=== PATIENT | male | born 1945 | race Caucasian/White ===

== ENCOUNTER 2020-08-13 15:24 | Inpatient (IN) ==
[2020-08-13 15:53] LABS: Bilirubin,Urine Negative (Negative); Blood, Urine Moderate mg/dL (Negative); Glucose,Urine (UA) Negative (Negative); Ketones,Urine Negative (Negative); Nitrite,Urine Negative (Negative); Protein,Urine Negative; RBC,Urine 12 /HPF (0-4); Squamous Epithelial Cell,Urine Occasional /HPF (0-10); Urine Appearance CLEAR (Clear); Urine Color Yellow (Yellow); Urine Specific Gravity 1.011 (1.001-1.035); Urine Urobilinogen < 2.0 EU/DL (0.2-1.0); WBC,Urine 3 /HPF (0-6)
[2020-08-13 15:55] LABS: Basophils # 0.1 10*3/uL (0.0-0.2); Basophils % 0.3 % (0.0-0.8); Eosinophils # 0.1 10*3/uL (0.0-0.87); Eosinophils % 0.4 % (0.00-10.9); Hematocrit 36.2 VOL% (42.0-52.0); Immature Granulocytes % 1.5 %; Immature Granulocytes Absolute 0.34 #; Lymphocytes # 2.6 10*3/uL (1.4-4.0); Lymphocytes % 11.4 % (21.2-54.2); Mean Corpuscular HGB Conc 33.1 GM/DL (32-36); Mean Corpuscular Volume 89.6 FL (87-102); Mean Platelet Volume 8.9 FL (9.6-12.0); Monocytes % 7.1 % (1.7-12.7); Neutrophils % 79.3 % (38.7-73.9); Platelet Count 398 T/CUMM (130-400); Red Blood Count 4.04 MC/CUMM (3.8-5.5); Red Cell Distribution Width 14.5 % (9.3-17.3); White Blood Count 22.5 T/CUMM (4-12)
[2020-08-13] MEDS ORDERED: DEXTROSE 5% LACTATED RINGERS 1,000 ML IV ONE (16:01)
[2020-08-13] MEDS ORDERED: DEXTROSE 50% 25 GM/50 ML SYRINGE IV ONE ×4 (16:04→18:45)
[2020-08-13] MEDS ORDERED: DEXTROSE 50% 25 GM/50 ML VIAL IV STA ×4 (16:06→18:54)
[2020-08-13 16:09] LABS: Barbiturates Screen,Urine Negative (Negative); Benzodiazepines Screen,Urine Negative (Negative); Cannabinoid Screen,Urine Negative (Negative); Opiate Screen,Urine Negative (Negative); Phencyclidine Screen,Urine Negative (Negative)
[2020-08-13] MEDS ORDERED: ACETAMINOPHEN 650 MG SUPP RECTAL STA (16:10)
[2020-08-13 16:13] LABS: Albumin 2.4 G/DL (3.4-5.0); Bilirubin,Total 0.6 MG/DL (0.2-1.0); Osmolality,Calculated 268.1 MOS/KG (273-304); Total Protein 8.1 G/DL (6.4-8.3)
[2020-08-13 16:35] LABS: Salicylate < 2.8 MG/DL (2.8-20)
[2020-08-13 16:36] LABS: ABG Base Excess 6.3 MMOL/L (-2.5-2.5); ABG HCO3 30.2 MMOL/L (20-26); ABG Oxygen Saturation 98.7 % (95-100); ABG PCO2 42.5 MM HG (35-48); ABG PH 7.467 (7.35-7.45); ABG TCO2 27.4 MMOL/L (23-27)
[2020-08-13 16:36] LABS: Risk Ratio 2.37; VLDL CHOLESTEROL 13.2 MG/DL
[2020-08-13 16:38] LABS: Acetaminophen < 2.0 UG/ML (10-30)
[2020-08-13] MEDS ORDERED: cefTRIAXone 1,000 MG in SODIUM CHLORIDE 0.9% 100 ML IV STA (17:20)
[2020-08-13] MEDS ORDERED: POTASSIUM CHLORIDE INJ 40 MEQ in DEXTROSE 5% LACTATED RINGERS 1,000 ML IV SCH (17:30)
[2020-08-13] MEDS ORDERED: GLUCAGON 1 MG VIAL IM PRN ×2 (18:29→18:30)
[2020-08-13] MEDS ORDERED: ZALEPLON 5 MG CAPSULE PO PRN (18:30)
[2020-08-13] MEDS ORDERED: diphenhydrAMINE CAP 25 MG CAPSULE PO PRN (18:30)
[2020-08-13] MEDS ORDERED: DOCUSATE SODIUM 100 MG CAPSULE PO PRN (18:30)
[2020-08-13] MEDS ORDERED: ONDANSETRON 4 MG/2 ML VIAL IV PRN (18:30)
[2020-08-13] MEDS ORDERED: AZITHROMYCIN INJ 500 MG in SODIUM CHLORIDE 0.9% 250 ML IV SCH (18:30)
[2020-08-13] MEDS ORDERED: NICOTINE 21 MG/24 HR PATCH TRANSDERM PRN (18:30)
[2020-08-13] MEDS ORDERED: DEXTROSE 5% NACL 0.9% 1,000 ML IV SCH (18:30)
[2020-08-13] MEDS ORDERED: hydrALAZINE 20 MG/1 ML VIAL IV PRN (18:30)
[2020-08-13] MEDS ORDERED: ACETAMINOPHEN 325 MG TABLET PO PRN (18:30)
[2020-08-13] MEDS ORDERED: guaiFENesin/DM ER 600-30 MG TABLET PO PRN (18:30)
[2020-08-13] MEDS ORDERED: DEXTROSE 10% 250 ML IV ONE (18:46)
[2020-08-13] MEDS: DEXTROSE 10% 250 ML BAG IV PRN ×3 (18:58→23:16)
[2020-08-13] MEDS: DEXTROSE IV SCH (19:39)
[2020-08-13] MEDS: POTASSIUM CHLORIDE IV SCH (19:39)
[2020-08-13] MEDS: [UNRECOGNIZED DRUG - OTHER] IV SCH (19:39)
[2020-08-13 19:49] LABS: Anisocytosis 4+; Hypochromasia 4+; Lymphocytes 5 % (20-55); Microcytosis 2+; Segmented Neutrophils 91 % (50-85); Total Cells Counted 100
[2020-08-13] MEDS: ALBUTEROL/IPRATROPIUM 3 ML NEB RESP TX SCH (20:30)
[2020-08-13] MEDS: DEXTROSE 50% 25 GM/50 ML VIAL IV PRN ×3 (20:48→23:29)
[2020-08-14] MEDS: PIPERACILLIN/TAZOBACTAM 3,375 MG in SODIUM CHLORIDE 0.9% 100 ML IV SCH ×3 (00:06→16:33)
[2020-08-14] MEDS ORDERED: HYDROCORTISONE 100 MG VIAL IV ONE (00:20)
[2020-08-14 01:11] LABS: Basophils # 0.1 10*3/uL (0.0-0.2); Basophils % 0.4 % (0.0-0.8); Eosinophils # 0.2 10*3/uL (0.0-0.87); Eosinophils % 0.8 % (0.00-10.9); Hematocrit 33.3 VOL% (42.0-52.0); Hemoglobin 11.2 GM/DL (14.0-18.0); Immature Granulocytes % 1.2 %; Immature Granulocytes Absolute 0.24 #; Lymphocytes # 3.4 10*3/uL (1.4-4.0); Lymphocytes % 17.1 % (21.2-54.2); Mean Corpuscular HGB Conc 33.6 GM/DL (32-36); Mean Corpuscular Volume 89.8 FL (87-102); Mean Platelet Volume 8.2 FL (9.6-12.0); Monocytes % 7.8 % (1.7-12.7); Neutrophils % 72.7 % (38.7-73.9); Platelet Count 305 T/CUMM (130-400); Red Blood Count 3.71 MC/CUMM (3.8-5.5); Red Cell Distribution Width 14.4 % (9.3-17.3); White Blood Count 20.1 T/CUMM (4-12)
[2020-08-14] MEDS: ALBUTEROL/IPRATROPIUM 3 ML NEB RESP TX SCH ×4 (01:12→19:37)
[2020-08-14 03:13] LABS: Band Neutrophils 1 % (0-10); Lymphocytes 20 % (20-55); Platelet Estimate Increased; Segmented Neutrophils 77 % (50-85); Total Cells Counted 100
[2020-08-14 03:14] LABS: Microcytosis 1+; Polychromasia Slight
[2020-08-14 03:15] LABS: Howell-Jolly Bodies Few; Target Cells Slight
[2020-08-14 03:16] LABS: Hypochromasia Slight
[2020-08-14] MEDS: VANCOMYCIN INJ 2,000 MG in SODIUM CHLORIDE 0.9% 500 ML IV SCH ×3 (03:37→23:22)
[2020-08-14] MEDS: [UNRECOGNIZED DRUG - OTHER] IV SCH ×3 (03:46→22:26)
[2020-08-14] MEDS: POTASSIUM CHLORIDE IV SCH ×3 (03:46→22:26)
[2020-08-14] MEDS: DEXTROSE IV SCH ×3 (03:46→22:26)
[2020-08-14] MEDS: DEXTROSE 10% 250 ML BAG IV PRN ×4 (05:25→23:57)
[2020-08-14] MEDS: DEXTROSE 50% 25 GM/50 ML VIAL IV PRN ×2 (05:25→19:35)
[2020-08-14 06:40] LABS: Albumin 2.2 G/DL (3.4-5.0); Calcium 8.1 MG/DL (8.5-10.1); Total Protein 7.5 G/DL (6.4-8.3)
[2020-08-14 06:42] LABS: Osmolality,Calculated 270.8 MOS/KG (273-304)
[2020-08-14] MEDS: ENOXAPARIN 40 MG/0.4 ML SYRINGE SUBCUT SCH (10:18)
[2020-08-14] MEDS: PANTOPRAZOLE 40 MG TABLET PO SCH (10:18)
[2020-08-14] MEDS: AZITHROMYCIN 250 MG TABLET PO SCH (10:18)
[2020-08-14] MEDS ORDERED: cefTRIAXone 1,000 MG in SYRINGE 1 EACH IV SCH (18:30)
[2020-08-14] MEDS ORDERED: LORazepam 2 MG/1 ML VIAL IV PRN (21:41)
[2020-08-15] MEDS: ALBUTEROL/IPRATROPIUM 3 ML NEB RESP TX SCH ×4 (01:10→18:45)
[2020-08-15] MEDS: PIPERACILLIN/TAZOBACTAM 3,375 MG in SODIUM CHLORIDE 0.9% 100 ML IV SCH ×3 (01:13→16:40)
[2020-08-15] MEDS: DEXTROSE 50% 25 GM/50 ML VIAL IV PRN ×3 (01:31→20:34)
[2020-08-15] MEDS: DEXTROSE 10% 250 ML BAG IV PRN ×7 (02:02→21:25)
[2020-08-15] MEDS: DEXTROSE IV SCH ×3 (06:49→20:06)
[2020-08-15] MEDS: [UNRECOGNIZED DRUG - OTHER] IV SCH ×3 (06:49→20:06)
[2020-08-15] MEDS: POTASSIUM CHLORIDE IV SCH ×3 (06:49→20:06)
[2020-08-15 08:42] LABS: Calcium 7.5 MG/DL (8.5-10.1); Osmolality,Calculated 282.4 MOS/KG (273-304)
[2020-08-15 09:07] LABS: Basophils # 0.1 10*3/uL (0.0-0.2); Basophils % 0.7 % (0.0-0.8); Eosinophils # 0.5 10*3/uL (0.0-0.87); Eosinophils % 2.7 % (0.00-10.9); Hematocrit 36.2 VOL% (42.0-52.0); Hemoglobin 11.7 GM/DL (14.0-18.0); Immature Granulocytes % 1.3 %; Immature Granulocytes Absolute 0.26 #; Lymphocytes # 3.6 10*3/uL (1.4-4.0); Lymphocytes % 18.5 % (21.2-54.2); Mean Corpuscular HGB Conc 32.3 GM/DL (32-36); Mean Corpuscular Volume 93.1 FL (87-102); Mean Platelet Volume 8.9 FL (9.6-12.0); Monocytes % 8.1 % (1.7-12.7); NRBC # 0.04 10*3/uL; Neutrophils % 68.7 % (38.7-73.9); Platelet Count 340 T/CUMM (130-400); Red Blood Count 3.89 MC/CUMM (3.8-5.5); White Blood Count 19.3 T/CUMM (4-12)
[2020-08-15] MEDS: AZITHROMYCIN 250 MG TABLET PO SCH (09:41)
[2020-08-15] MEDS: ENOXAPARIN 40 MG/0.4 ML SYRINGE SUBCUT SCH (09:41)
[2020-08-15] MEDS: PANTOPRAZOLE 40 MG TABLET PO SCH (09:41)
[2020-08-15] MEDS ORDERED: FUROSEMIDE 40 MG/4 ML VIAL IV ONE (11:04)
[2020-08-15] MEDS: VANCOMYCIN INJ 2,000 MG in SODIUM CHLORIDE 0.9% 500 ML IV SCH (11:53)
[2020-08-15 14:57] LABS: Calcium 7.6 MG/DL (8.5-10.1); Osmolality,Calculated 273.7 MOS/KG (273-304)
[2020-08-15] MEDS ORDERED: MAGNESIUM SULF RIDER 2 GM in PREMIX 1 EACH IV ONE (21:44)
[2020-08-16] MEDS: VANCOMYCIN INJ 2,000 MG in SODIUM CHLORIDE 0.9% 500 ML IV SCH (00:31)
[2020-08-16] MEDS: ALBUTEROL/IPRATROPIUM 3 ML NEB RESP TX SCH ×5 (01:18→19:25)
[2020-08-16] MEDS: PIPERACILLIN/TAZOBACTAM 3,375 MG in SODIUM CHLORIDE 0.9% 100 ML IV SCH ×3 (01:27→18:23)
[2020-08-16] MEDS: [UNRECOGNIZED DRUG - OTHER] IV SCH ×2 (05:21→23:22)
[2020-08-16] MEDS: DEXTROSE IV SCH ×2 (05:21→23:22)
[2020-08-16] MEDS: POTASSIUM CHLORIDE IV SCH ×2 (05:21→23:22)
[2020-08-16 07:29] LABS: Basophils # 0.1 10*3/uL (0.0-0.2); Basophils % 0.4 % (0.0-0.8); Eosinophils # 0.7 10*3/uL (0.0-0.87); Eosinophils % 3.9 % (0.00-10.9); Hematocrit 34.7 VOL% (42.0-52.0); Hemoglobin 11.4 GM/DL (14.0-18.0); Immature Granulocytes % 1.5 %; Immature Granulocytes Absolute 0.27 #; Lymphocytes # 2.6 10*3/uL (1.4-4.0); Lymphocytes % 13.8 % (21.2-54.2); Mean Corpuscular HGB Conc 32.9 GM/DL (32-36); Mean Corpuscular Volume 92.8 FL (87-102); Mean Platelet Volume 8.9 FL (9.6-12.0); Monocytes % 6.5 % (1.7-12.7); Neutrophils % 73.9 % (38.7-73.9); Platelet Count 314 T/CUMM (130-400); Red Blood Count 3.74 MC/CUMM (3.8-5.5); Red Cell Distribution Width 14.9 % (9.3-17.3); White Blood Count 18.5 T/CUMM (4-12)
[2020-08-16 07:45] LABS: Calcium 7.8 MG/DL (8.5-10.1); Osmolality,Calculated 271.7 MOS/KG (273-304)
[2020-08-16] MEDS ORDERED: VANCOMYCIN INJ 1,500 MG in SODIUM CHLORIDE 0.9% 500 ML IV SCH (08:00)
[2020-08-16] MEDS: AZITHROMYCIN 250 MG TABLET PO SCH (09:49)
[2020-08-16] MEDS: PANTOPRAZOLE 40 MG TABLET PO SCH (09:50)
[2020-08-16] MEDS: ENOXAPARIN 40 MG/0.4 ML SYRINGE SUBCUT SCH (09:50)
[2020-08-16] MEDS ORDERED: FUROSEMIDE 40 MG/4 ML VIAL IV ONE (11:31)
[2020-08-16] MEDS: DEXTROSE 10% 250 ML BAG IV PRN (20:16)
[2020-08-16] MEDS: DEXTROSE 50% 25 GM/50 ML VIAL IV PRN (22:26)
[2020-08-17] MEDS: ALBUTEROL/IPRATROPIUM 3 ML NEB RESP TX SCH ×2 (00:18→07:42)
[2020-08-17] MEDS: DEXTROSE 10% 250 ML BAG IV PRN ×3 (00:30→08:51)
[2020-08-17] MEDS: DEXTROSE 50% 25 GM/50 ML VIAL IV PRN ×2 (00:30→13:12)
[2020-08-17] MEDS: PIPERACILLIN/TAZOBACTAM 3,375 MG in SODIUM CHLORIDE 0.9% 100 ML IV SCH ×2 (00:34→09:30)
[2020-08-17] MEDS: [UNRECOGNIZED DRUG - OTHER] IV SCH ×2 (00:40→10:51)
[2020-08-17] MEDS: POTASSIUM CHLORIDE IV SCH ×2 (00:40→10:51)
[2020-08-17] MEDS: DEXTROSE IV SCH ×2 (00:40→10:51)
[2020-08-17 06:56] LABS: Basophils # 0.1 10*3/uL (0.0-0.2); Basophils % 0.5 % (0.0-0.8); Eosinophils # 0.8 10*3/uL (0.0-0.87); Eosinophils % 4.6 % (0.00-10.9); Hematocrit 35.5 VOL% (42.0-52.0); Hemoglobin 11.4 GM/DL (14.0-18.0); Immature Granulocytes % 1.9 %; Immature Granulocytes Absolute 0.35 #; Lymphocytes # 2.8 10*3/uL (1.4-4.0); Lymphocytes % 15.5 % (21.2-54.2); Mean Corpuscular HGB Conc 32.1 GM/DL (32-36); Mean Corpuscular Volume 92.9 FL (87-102); Mean Platelet Volume 8.7 FL (9.6-12.0); Monocytes % 6.4 % (1.7-12.7); Neutrophils % 71.1 % (38.7-73.9); Platelet Count 324 T/CUMM (130-400); Red Blood Count 3.82 MC/CUMM (3.8-5.5); Red Cell Distribution Width 15.1 % (9.3-17.3); White Blood Count 18.2 T/CUMM (4-12)
[2020-08-17 07:12] LABS: Calcium 8.2 MG/DL (8.5-10.1)
[2020-08-17] MEDS: AZITHROMYCIN 250 MG TABLET PO SCH (09:29)
[2020-08-17] MEDS: PANTOPRAZOLE 40 MG TABLET PO SCH (09:29)
[2020-08-17] MEDS: ENOXAPARIN 40 MG/0.4 ML SYRINGE SUBCUT SCH (09:31)
[2020-08-17] MEDS ORDERED: GLUCOSE GEL 15 GM TUBE PO PRN (11:00)
[2020-08-17 12:05] VITALS: BP 172/77
[2020-08-18] MEDS ORDERED: LEVOFLOXACIN 500 MG TABLET PO SCH (09:00)
== END 2020-08-17 13:50 | disposition hospice, home (50) | DRG 643 ==
LOC: EDUNIT# → EDBD → N.ED 15:24 → SUATTDRO 18:30 → N.EDINP 18:30 → N.TELEN 19:49
PROVIDERS: ADMIT Internal Medicine; ATTEND Internal Medicine